=== PATIENT | male | born 1975 | race Caucasian/White ===

== ENCOUNTER 2018-02-22 23:35 | Emergency (ER) | payer MEDICAID ==
[~2018-02-22] VITALS: Ht 177.8 cm; Wt 73.5 kg
[~2018-02-22 23:35] MED LIST: AMOCLA875 PO; ATEN50 PO; Albuterol17 G1 INH; Bactrim Ds Tab1 EACH PO; CEPH500 PO; CHLO25 PO; HYDACE25S PR; HYDACE5 PO; HYDCHL25 PO; Keflex500 MG PO; LISI5 PO; LORA10 PO; Lopressor 25 mg25 MG PO; METO25 PO; Naprosyn500 MG PO; Norco 5-325 Ta1 EACH PO; OXYACE7.5T PO; PRED20 PO; Pepcid40 MG PO; Prednisone20 MG PO; RXOXYACE PO; RXSULTRIDS PO; SULTRIDS PO; TRAZ50; Ultram50 MG PO; Zithromax250 MG PO
[2018-02-23 00:18] LABS: BASOPHILS ABSOLUTE AUTO 0.08 K/mm3 (0.00-0.23); BASOPHILS PERCENT AUTO 1 % (0-2); EOSINOPHILS ABSOLUTE AUTO 0.22 K/mm3 (0.00-0.68); EOSINOPHILS PERCENT AUTO 4 % (0-6); Hematocrit 40.1 % (37.0-53.0); Hemoglobin 13.7 g/dL (13.5-17.5); IMMATURE GRAN ABSOLUTE AUTO 0.01 K/mm3 (0.00-0.10); IMMATURE GRAN PERCENT AUTO 0 % (0-1); LYMPHOCYTES ABSOLUTE AUTO 2.54 K/mm3 (0.84-5.20); LYMPHOCYTES PERCENT AUTO 40 % (21-46); MONOCYTES ABSOLUTE AUTO 0.75 K/mm3 (0.16-1.47); MONOCYTES PERCENT AUTO 12 % (4-13); Mean Corpuscular HGB 30.1 pg (26.0-34.0); Mean Corpuscular HGB Conc 34.2 g/dL (31.5-36.5); Mean Corpuscular Volume 88 fL (80-100); Mean Platelet Volume 9.9 fL (9.1-12.4); NEUTROPHILS ABSOLUTE AUTO 2.77 K/mm3 (1.96-9.15); NEUTROPHILS PERCENT AUTO 43 % (41-73); Platelet Count 262 K/mm3 (150-400); RDW Coefficient Variation 12.6 % (11.7-14.2); RDW Standard Deviation 40.9 fL (35.1-46.3); Red Blood Cell Count 4.55 M/mm3 (4.30-5.90); White Blood Cell Count 6.37 K/mm3 (4.00-11.30)
[2018-02-23 00:36] LABS: Alanine Aminotransfer (ALT/SGP 67 U/L (12-78); Albumin, Blood 3.5 g/dL (3.4-5.0); Albumin/Globulin Ratio 0.9 (0.8-1.8); Alk Phos 82 U/L (50-136); Anion Gap 7 mmol/L (6-16); Aspartate Aminotrans (AST/SGOT 70 U/L (12-37); Bilirubin, Total 0.2 mg/dL (0.1-1.0); Blood Urea Nitrogen 16 mg/dL (8-24); Bun/Creatinine Ratio 14.3 (12.0-20.0); CO2, Blood 27 mmol/L (21-32); Chloride, Blood 108 mmol/L (98-108); Creatinine, Blood 1.12 mg/dL (0.60-1.20); Ethanol (Alcohol), Blood, Med 280 mg/dL; Globulin, Blood 3.8 g/dL (2.2-4.0); Glomerular Filtration Rate >60 (60-); Glucose, Blood 102 mg/dL (70-99); Potassium, Blood 3.7 mmol/L (3.5-5.5); Sodium, Blood 142 mmol/L (136-145); Total Protein, Blood 7.3 g/dL (6.4-8.2)
[2018-02-23] MEDS ORDERED: CHLO25 PO (01:07)
== END 2018-02-23 01:18 | disposition home or self-care (01) ==
LOC: ER 23:35
PROVIDERS: Emergency Medicine
DX: F10.10 Alcohol abuse, uncomplicated (principal); I10 Essential (primary) hypertension; F17.210 Nicotine dependence, cigarettes, uncomplicated; Z88.0 Allergy status to penicillin; Z88.5 Allergy status to narcotic agent; Z79.899 Other long term (current) drug therapy; Y90.8 Blood alcohol level of 240 mg/100 ml or more
CPT/HCPCS: 36415; 80053; 85025; 99284; G0480

== ENCOUNTER 2018-03-02 18:25 | Emergency (ER) | payer OTHER ==
[~2018-03-02] VITALS: Ht 154.9 cm; Wt 77.1 kg
[2018-03-02 19:17] LABS: BASOPHILS ABSOLUTE AUTO 0.05 K/mm3 (0.00-0.23); BASOPHILS PERCENT AUTO 1 % (0-2); EOSINOPHILS ABSOLUTE AUTO 0.15 K/mm3 (0.00-0.68); EOSINOPHILS PERCENT AUTO 2 % (0-6); Hematocrit 37.7 % (37.0-53.0); Hemoglobin 12.9 g/dL (13.5-17.5); IMMATURE GRAN ABSOLUTE AUTO 0.03 K/mm3 (0.00-0.10); IMMATURE GRAN PERCENT AUTO 0 % (0-1); LYMPHOCYTES ABSOLUTE AUTO 1.83 K/mm3 (0.84-5.20); LYMPHOCYTES PERCENT AUTO 21 % (21-46); MONOCYTES ABSOLUTE AUTO 0.76 K/mm3 (0.16-1.47); MONOCYTES PERCENT AUTO 9 % (4-13); Mean Corpuscular HGB 30.6 pg (26.0-34.0); Mean Corpuscular HGB Conc 34.2 g/dL (31.5-36.5); Mean Corpuscular Volume 90 fL (80-100); Mean Platelet Volume 10.6 fL (9.1-12.4); NEUTROPHILS ABSOLUTE AUTO 5.93 K/mm3 (1.96-9.15); NEUTROPHILS PERCENT AUTO 68 % (41-73); Platelet Count 195 K/mm3 (150-400); RDW Coefficient Variation 12.9 % (11.7-14.2); RDW Standard Deviation 42.4 fL (35.1-46.3); Red Blood Cell Count 4.21 M/mm3 (4.30-5.90); White Blood Cell Count 8.75 K/mm3 (4.00-11.30)
[2018-03-02 19:36] LABS: Alanine Aminotransfer (ALT/SGP 53 U/L (12-78); Albumin, Blood 3.1 g/dL (3.4-5.0); Albumin/Globulin Ratio 0.9 (0.8-1.8); Alk Phos 99 U/L (50-136); Anion Gap 9 mmol/L (6-16); Aspartate Aminotrans (AST/SGOT 55 U/L (12-37); Bilirubin, Total 0.1 mg/dL (0.1-1.0); Blood Urea Nitrogen 18 mg/dL (8-24); Bun/Creatinine Ratio 18.6 (12.0-20.0); CO2, Blood 25 mmol/L (21-32); Calcium, Blood 8.6 mg/dL (8.5-10.1); Chloride, Blood 107 mmol/L (98-108); Creatinine, Blood 0.97 mg/dL (0.60-1.20); Ethanol (Alcohol), Blood, Med <3 mg/dL; Globulin, Blood 3.4 g/dL (2.2-4.0); Glomerular Filtration Rate >60 (60-); Glucose, Blood 109 mg/dL (70-99); Potassium, Blood 4.1 mmol/L (3.5-5.5); Sodium, Blood 141 mmol/L (136-145); Total Protein, Blood 6.5 g/dL (6.4-8.2)
[2018-03-02] MEDS ORDERED: CHLO25 PO (19:52)
== END 2018-03-02 20:30 | disposition home or self-care (01) ==
LOC: ER 18:25
PROVIDERS: Emergency Medicine
DX: F10.231 Alcohol dependence with withdrawal delirium (principal); R56.9 Unspecified convulsions; F17.200 Nicotine dependence, unspecified, uncomplicated; Z88.5 Allergy status to narcotic agent; Z88.0 Allergy status to penicillin
CPT/HCPCS: 36415; 80053; 85025; 96374; 99284-25; G0480; J2060

== ENCOUNTER 2018-03-02 23:06 | Emergency (ER) | payer OTHER ==
[~2018-03-02] VITALS: Ht 172.7 cm; Wt 77.1 kg
[2018-03-03 00:35] LABS: Calcium, Ionized (POC) 1.14 mmol/L (1.10-1.46); Chloride (POC) 102 mmol/L (98-108); Creatinine (POC) 0.8 mg/dL (0.8-1.3); Glucose (ISTAT POC) 134 mg/dL (70-99); Hemoglobin (POC) 11.9 g/dL (13.5-17.5); Potassium (POC) 3.6 mmol/L (3.5-5.5); Sodium (POC) 140 mmol/L (135-148); Total CO2 (POC) 28 mmol/L (21-32)
[2018-03-03 00:39] LABS: BASOPHILS ABSOLUTE AUTO 0.04 K/mm3 (0.00-0.23); BASOPHILS PERCENT AUTO 1 % (0-2); EOSINOPHILS ABSOLUTE AUTO 0.07 K/mm3 (0.00-0.68); EOSINOPHILS PERCENT AUTO 1 % (0-6); Hemoglobin 12.3 g/dL (13.5-17.5); IMMATURE GRAN ABSOLUTE AUTO 0.07 K/mm3 (0.00-0.10); IMMATURE GRAN PERCENT AUTO 1 % (0-1); LYMPHOCYTES ABSOLUTE AUTO 0.98 K/mm3 (0.84-5.20); LYMPHOCYTES PERCENT AUTO 11 % (21-46); MONOCYTES ABSOLUTE AUTO 0.56 K/mm3 (0.16-1.47); MONOCYTES PERCENT AUTO 6 % (4-13); Mean Corpuscular HGB 29.9 pg (26.0-34.0); Mean Corpuscular HGB Conc 33.2 g/dL (31.5-36.5); Mean Corpuscular Volume 90 fL (80-100); Mean Platelet Volume 10.6 fL (9.1-12.4); NEUTROPHILS PERCENT AUTO 81 % (41-73); Platelet Count 184 K/mm3 (150-400); RDW Coefficient Variation 12.8 % (11.7-14.2); RDW Standard Deviation 41.9 fL (35.1-46.3); Red Blood Cell Count 4.12 M/mm3 (4.30-5.90); White Blood Cell Count 8.82 K/mm3 (4.00-11.30)
[2018-03-03 00:57] LABS: Alanine Aminotransfer (ALT/SGP 52 U/L (12-78); Albumin/Globulin Ratio 0.9 (0.8-1.8); Alk Phos 75 U/L (50-136); Anion Gap 4 mmol/L (6-16); Aspartate Aminotrans (AST/SGOT 52 U/L (12-37); Bilirubin, Total 0.2 mg/dL (0.1-1.0); Blood Urea Nitrogen 19 mg/dL (8-24); Bun/Creatinine Ratio 24.3 (12.0-20.0); CO2, Blood 30 mmol/L (21-32); Calcium, Blood 8.1 mg/dL (8.5-10.1); Chloride, Blood 107 mmol/L (98-108); Creatinine, Blood 0.78 mg/dL (0.60-1.20); Globulin, Blood 3.5 g/dL (2.2-4.0); Glomerular Filtration Rate >60 (60-); Glucose, Blood 133 mg/dL (70-99); Potassium, Blood 3.7 mmol/L (3.5-5.5); Sodium, Blood 141 mmol/L (136-145); Total Protein, Blood 6.5 g/dL (6.4-8.2)
== END 2018-03-03 03:43 | disposition home or self-care (01) ==
LOC: ER 23:06
PROVIDERS: Emergency Medicine
DX: F10.239 Alcohol dependence with withdrawal, unspecified (principal); Z88.0 Allergy status to penicillin; Z88.5 Allergy status to narcotic agent; Z79.899 Other long term (current) drug therapy; I10 Essential (primary) hypertension; F17.210 Nicotine dependence, cigarettes, uncomplicated
CPT/HCPCS: 80047; 80053; 85014; 85025; 99284; J3411; J3475; J7042

== ENCOUNTER 2019-02-02 17:48 | Inpatient (IN) | payer OTHER ==
[~2019-02-02] VITALS: Ht 175.3 cm; Wt 76.8 kg
[2019-02-02 18:15] LABS: BASOPHILS ABSOLUTE AUTO 0.07 K/mm3 (0.00-0.23); BASOPHILS PERCENT AUTO 1 % (0-2); EOSINOPHILS ABSOLUTE AUTO 0.04 K/mm3 (0.00-0.68); EOSINOPHILS PERCENT AUTO 1 % (0-6); Hematocrit 42.3 % (37.0-53.0); Hemoglobin 14.1 g/dL (13.5-17.5); IMMATURE GRAN ABSOLUTE AUTO 0.02 K/mm3 (0.00-0.10); IMMATURE GRAN PERCENT AUTO 0 % (0-1); LYMPHOCYTES ABSOLUTE AUTO 1.64 K/mm3 (0.84-5.20); LYMPHOCYTES PERCENT AUTO 19 % (21-46); MONOCYTES ABSOLUTE AUTO 0.36 K/mm3 (0.16-1.47); MONOCYTES PERCENT AUTO 4 % (4-13); Mean Corpuscular HGB Conc 33.3 g/dL (31.5-36.5); Mean Corpuscular Volume 90 fL (80-100); Mean Platelet Volume 10.6 fL (9.1-12.4); NEUTROPHILS ABSOLUTE AUTO 6.57 K/mm3 (1.96-9.15); NEUTROPHILS PERCENT AUTO 76 % (41-73); Platelet Count 198 K/mm3 (150-400); RDW Coefficient Variation 12.4 % (11.7-14.2); RDW Standard Deviation 41.1 fL (35.1-46.3)
[2019-02-02 18:54] LABS: Alanine Aminotransfer (ALT/SGP 123 U/L (12-78); Albumin, Blood 4.1 g/dL (3.4-5.0); Albumin/Globulin Ratio 1.1 (0.8-1.8); Alk Phos 73 U/L (50-136); Anion Gap 8 mmol/L (6-16); Aspartate Aminotrans (AST/SGOT 99 U/L (12-37); Bilirubin, Total 0.7 mg/dL (0.1-1.0); Blood Urea Nitrogen 14 mg/dL (8-24); Bun/Creatinine Ratio 13.3 (12.0-20.0); CO2, Blood 26 mmol/L (21-32); Calcium, Blood 8.3 mg/dL (8.5-10.1); Chloride, Blood 106 mmol/L (98-108); Creatinine, Blood 1.05 mg/dL (0.60-1.20); Globulin, Blood 3.7 g/dL (2.2-4.0); Glomerular Filtration Rate >60 (60-); Glucose, Blood 146 mg/dL (70-99); Potassium, Blood 3.7 mmol/L (3.5-5.5); Sodium, Blood 140 mmol/L (136-145); Total Protein, Blood 7.8 g/dL (6.4-8.2)
--- NOTE | 2019-02-03 01:11 | NUR ---
ASSUMED PT CARE AT 2330 PT ARRIVED ON UNIT VIA STRETCHER. VERY DROWSY, BUT RESPONSIVE TO VERBAL STIMULI. PT ALERT AND ORIENTED TO PERSON AND SURROUNDINGS. ABLE TO FOLLOW DIRECTIONS. PT VERY DIAPHORETIC WITH A TEMPERATURE 99.0. VERY TREMULOUS WITH ARMS EXTENDED. CIWA SCORE OF 11. ORDERS FOR LIBRIUM 50MG; CALLED TO ASK FOR 25-50MG IN ORDER TO START OUT AT SMALLER DOSE. PT ALSO ARRIVED WITH NO ORDERS FOR MAINTENANCE FLUIDS; CALLED TO CLARIFY WITH NEW ORDERS FOR A BANANA BAG, WELL NS TO INFUSE AT 100MLS/HR. ADMINISTERED 25MG OF LIBRIUM PER CIWA SCORE. PT ARRIVED WITH TWO FIELD START IV'S. IV TO LEFT HAND WAS NOT PATENT; HOWEVER, ATTEMPTED FOUR TIMES TO OBTAIN ANOTHER IV. VERY DIFFICULT; WOULD RECEIVE A FLASH, BUT NOT ABLE TO THREAD CATHETER. PLACED 2L OF OXYGEN ON PT D/T OXYGEN SATURATIONS DOWN TO 88% WHEN HE WOULD FALL ASLEEP. NO SEIZURE ACTIVITY AT THIS TIME; SEIZURE PADS IN PLACE. WILL CONTINUE TO MONITOR.
[2019-02-03 03:48] LABS: Hematocrit 42.8 % (37.0-53.0); Hemoglobin 14.2 g/dL (13.5-17.5); Mean Corpuscular HGB 29.6 pg (26.0-34.0); Mean Corpuscular HGB Conc 33.2 g/dL (31.5-36.5); Mean Corpuscular Volume 89 fL (80-100); Mean Platelet Volume 10.4 fL (9.1-12.4); Platelet Count 211 K/mm3 (150-400); RDW Coefficient Variation 12.5 % (11.7-14.2); RDW Standard Deviation 41.5 fL (35.1-46.3); Red Blood Cell Count 4.79 M/mm3 (4.30-5.90); White Blood Cell Count 7.62 K/mm3 (4.00-11.30)
[2019-02-03 04:07] LABS: Alanine Aminotransfer (ALT/SGP 115 U/L (12-78); Albumin, Blood 3.6 g/dL (3.4-5.0); Alk Phos 73 U/L (50-136); Anion Gap 6 mmol/L (6-16); Aspartate Aminotrans (AST/SGOT 99 U/L (12-37); Bilirubin, Total 0.7 mg/dL (0.1-1.0); Blood Urea Nitrogen 10 mg/dL (8-24); Bun/Creatinine Ratio 12.4 (12.0-20.0); CO2, Blood 27 mmol/L (21-32); Calcium, Blood 7.9 mg/dL (8.5-10.1); Chloride, Blood 106 mmol/L (98-108); Creatinine, Blood 0.81 mg/dL (0.60-1.20); Globulin, Blood 3.7 g/dL (2.2-4.0); Glomerular Filtration Rate >60 (60-); Glucose, Blood 109 mg/dL (70-99); Potassium, Blood 3.5 mmol/L (3.5-5.5); Sodium, Blood 139 mmol/L (136-145); Total Protein, Blood 7.3 g/dL (6.4-8.2)
--- NOTE | 2019-02-03 05:52 | NUR ---
END OF SHIFT SUMMARY PT REMAINS CONFUSED TO PLACE AND TIME, BUT ABLE TO FOLLOW COMMANDS. CONTINUES TO BE TREMULOUS AT BASELINE, AND DIAPHORETIC. HOWEVER, PT DENIES ANY VISUAL/AUDITORY HALLUCINATIONS. HIGHEST CIWA SCORE OF 11 THIS SHIFT AND WAS TREATED WITH LIBRIUM 25MG PER ORDERS. PT HAS BEEN SLEEPING COMFORTABLY MOST OF SHIFT AND ABLE TO REPOSITION HIMSELF. CALL LIGHT WITHIN REACH AND PT IS ABLE TO MAKE HIS NEEDS KNOWN.
--- NOTE | 2019-02-03 07:14 | NUR ---
ASSUMED CARE: PT RESTING QUIETLY IN BED AT THIS TIME. REPOSITIONS SELF IN BED, 2L NC FOR SATS GREATER THAN 90%. NSR WITH INVERTED T WAVE NOTED. NO ACUTE NEEDS NOTED AT THIS TIME.
--- NOTE | 2019-02-03 17:37 | NUR ---
SHIFT SUMMARY: PT HAS BEEN RESTING MOST OF SHIFT. CIWA HIGH 17. MEDICATING ABLE WITH ATIVAN AND LIBRIUM PER ORDERS. RESTING QUIETLY AT THIS TIME. ATE LUNCH, WAITING TO WAKE UP FOR DINNER. NO SEIZURE ACTIVITY NOTED. NO FURTHER NEEDS OR CONCERNS AT THIS TIME.
--- NOTE | 2019-02-03 20:13 | NUR ---
INITIAL ASSESSMENT PATIENT SLEEPING SOUNDLY UPON ENTERING ROOM. PATIENT WOKE TO VERBAL STIMULI. PATIENT ALERT AND ORIENTED TO SELF, TOWN AND FOLLOWING DIRECTIONS. AFEBRILE. CIWA OF 15 CURRENTLY. PATIENT COMPLAINTS OF MILD HEADACHE BUT THAT IT IS MANAGEABLE. PATIENT WEAK BUT ABLE TO REPOSITION SELF IN BED AND ASSIST WITH ADLS. PATIENT SATTING 90% AND GREATER ON RA. LUNGS CLEAR T/O. PATIENT IN NS WITH INVERTED T WAVE. HR IN THE 80S, SBP IN THE 150S. PULSES STRONG. PATIENT COMPLAINS OF SLIGHT NAUSEA. ABDOMEN SOFT, NONTENDER, MILDLY DISTENDED, WITH NORMOACTIVE BS. DATE OF LAST BM UNKNOWN. WNL- PATIENT USING BEDSIDE URINAL. SKIN APPEARS WNL. NS INFUSING AT 100 MLS/ HOUR. BED LOW, CALL LIGHT IN REACH. WILL CONTINUE TO MONITOR.
--- NOTE | 2019-02-03 20:28 | NUR ---
REPORT GIVEN TO NURSE FOR PCU 13 THAT WILL BE ASSUMING CARE OF PATIENT.
--- NOTE | 2019-02-03 20:45 | NUR ---
PATIENT TRANSFERRED TO PCU 13 BY SOFTWARE PRODUCT SPECIALIST.
--- NOTE | 2019-02-03 22:22 | NUR ---
PATIENT ONLY RESPONDING TO QUESTIONS IN ONE WORD RESPONSES AND POINTING OR NODDING AT THINGS HE WANTS. PATIENT LOOKS LIKE HE IS TRYING TO TALK BUT IS UNABLE TO. NOTIFIED DR. MAGDALENO OF PATIENT COMMUNICATION DEFICITS. DOCTOR STATES TO TRY TO HOLD ATIVAN IF WE CAN THROUGH THE NIGHT TO SEE IF PATIENT CLEARS. GIVE IF NEEDED FOR CIWA.
--- NOTE | 2019-02-03 22:44 | NUR ---
PATIENT ABLE TO USE URINAL WITHOUT ASSISTANCE. PATIENT DROPPED SOMETHING ALERTING ME HE MAY NEED SOMETHING. PATIENT ONLY ABLE TO SAY "MESS". PATIENT HAD SLIGHT INCOTINENCE OF BOWELS. ABLE TO USE BEDPAN AND HAD A MEDIUM LOOSE BROWN ODORESS STOOL. PATIENT STATED "SHAKES", "MAD", "SLEEP", "MIC". PATIENT NODDED HEAD WHEN ASKED IF HE WAS MAD. NOT ABLE TO EXPRESS WHY. EXPLAINED TO PATIENT THAT WE ARE TRYING TO LIMIT SOME OF HIS MEDICATIONS DUE TO HIS TROUBLE COMMUNICATING. PATIENT NODDED HEAD. PATIENT BED ALARM ON AND SIEZURE PRECAUTIONS IN PLACE.
--- NOTE | 2019-02-04 06:32 | NUR ---
PATIENT CONTINUES TO HAVE TROUBLE WITH TALKING. PATIENT HAS BEEN SLEEPING THROUGH THE NIGHT. PATIENT USING URINAL APPROPRIATELY AND REPOSITIONING SELF IN THE BED.
--- NOTE | 2019-02-04 17:54 | NUR ---
END OF SHIFT; PT HAS BEEN VERY BUSY TODAY. UP AND DOWN IN ROOM. HAS PULLED ONE IV OUT. ANOTHER ONE IS STARTED BY JENARO BASS. PT UP TO BATHROOM MULITPLE TIMES TODAY. HAS SMALL SOFT FORMED STOOLS EACH TIME. PT HAS ANXIETY AND WOULD LIKE TO GO HOME. TRIES TO BARGAIN WITH THIS RN TO HAVE HER TALK MD INTO LETTING HIM GO HOME. THIS RN REINFORCES WHAT SAID EARLIER IN HER CONVERSATION WITH PATIENT WHEN I WAS IN ROOM THAT HE WAS AT HIGH RISK FOR SEIZURES AND THAT HIS BLOOD PRESSURE WAS EXTREME HIGH AND NEEDED TO BE ADDRESSED. PATIENT VERBALIZED UNDERSTANDING. METOPROLOL 5MG IV GIVEN THIS LIVAN FOR ELEVATED BP OF 176/129. AFTER 30 MINUTES DOWN TO 163/108. PT ASKING REPEATEDLY FOR ATIVAN THROUGHOUT DAY. MUCH EDUCATION IS PROVIDED ON DETOX AND PHYSICAL SYMPTOMS. PT VERBALIZED UNDERSTANDING. AT ONE TIME PT STATES THAT HE IS GOING TO [facility] ON WEDNESDAY AND HAS BEEN ACCEPTED. . HOWEVER HE LATER RETRACTS THAT STATEMENT AND SAID HE THINKS THEY MAY HAVE A BED FOR HIM ON WEDNESDAY IF HE CHECKS. PT IS NOTED TO BE CALLING ON PHONE THIS LIVAN ASKING FOR FRIENDS TO COME GIVE HIM A RIDE HOME. PER PATIENT HIS FRIENDS HAVE REFUSED TO COME GET HIM. WILL CONTINUE TO MONITOR THIS PATEINT UNTIL REPORT AND HAND OFF TO NOC SHIFT RN.
--- NOTE | 2019-02-05 03:42 | NUR ---
PATIENT ASKING FOR SPRITE AND SNACKS WHENEVER HE WAKES UP. PATIENT ASKING FOR ANXIETY MEDICATION WHENEVER HE IS AWAKE ALSO. PATIENT WAKING TO THE BATHROOM SUPERVISED WITHOUT ASSISTANCE. PATIENT ABLE TO HOLD CONVERSATION THROUGH THE NIGHT. PATIENT STATES HE IS GOING HOME TODAY.
--- NOTE | 2019-02-05 08:38 | NUR ---
PT INSISTS ON LEAVING AMA. COMES TO ROOM TO SPEAK WITH PATIENT. EXPLAINED RISKS OF LEAVING TO PATIENT HE VERBALIZED UNDERSTANDING. PT REQUESTING RX. REFUSES STATES NO RX IF HE LEAVES AMA. IV IS DC'D INTACT. PT CALLS AGAIN FOR RIDE. HIS RIDE WILL BE HERE IN 10 MINUTES PER PATEINT. PT AMBULATES TO [facility] WITHOUT ASSIST. OUTSIDE SALES CONSULTANT NOTIFIED CHARGE LARISSA NOTIFIED. PT SIGNED AMA FORM PRIOR TO LEAVING.
== END 2019-02-05 08:44 | disposition left against medical advice (07) | DRG 894 ==
LOC: ER 17:48 → ICUW 17:49 → ER 20:29 → ICUW 20:29 → PCU 02-03 21:00
PROVIDERS: Emergency Medicine; ADMIT Internal Medicine
DX: F10.239 Alcohol dependence with withdrawal, unspecified (principal); R47.01 Aphasia; F17.210 Nicotine dependence, cigarettes, uncomplicated; I10 Essential (primary) hypertension; Y90.8 Blood alcohol level of 240 mg/100 ml or more; J42 Unspecified chronic bronchitis
CPT/HCPCS: 36415; 70450; 70496; 70498; 71045; 80053; 85025; 85027; 87081; 96360; 96361; 96372; 96374; 96375; 96376; 99285-25; G0378; G0480; J1650; J2060; J3411; J3475; J7030; J7042; Q9967

== ENCOUNTER 2019-06-19 18:07 | Inpatient (IN) | payer OTHER ==
[~2019-06-19] VITALS: Ht 180.3 cm; Wt 77.3 kg
[2019-06-19 19:05] LABS: BASOPHILS ABSOLUTE AUTO 0.06 K/mm3 (0.00-0.23); BASOPHILS PERCENT AUTO 1 % (0-2); EOSINOPHILS ABSOLUTE AUTO 0.26 K/mm3 (0.00-0.68); EOSINOPHILS PERCENT AUTO 3 % (0-6); Hematocrit 42.9 % (37.0-53.0); Hemoglobin 14.2 g/dL (13.5-17.5); IMMATURE GRAN ABSOLUTE AUTO 0.04 K/mm3 (0.00-0.10); IMMATURE GRAN PERCENT AUTO 1 % (0-1); LYMPHOCYTES ABSOLUTE AUTO 1.96 K/mm3 (0.84-5.20); LYMPHOCYTES PERCENT AUTO 22 % (21-46); MONOCYTES ABSOLUTE AUTO 0.62 K/mm3 (0.16-1.47); MONOCYTES PERCENT AUTO 7 % (4-13); Mean Corpuscular HGB 29.7 pg (26.0-34.0); Mean Corpuscular HGB Conc 33.1 g/dL (31.5-36.5); Mean Corpuscular Volume 90 fL (80-100); Mean Platelet Volume 11.3 fL (9.1-12.4); NEUTROPHILS ABSOLUTE AUTO 5.87 K/mm3 (1.96-9.15); NEUTROPHILS PERCENT AUTO 67 % (41-73); Platelet Count 196 K/mm3 (150-400); RDW Coefficient Variation 13.1 % (11.7-14.2); RDW Standard Deviation 42.5 fL (35.1-46.3); Red Blood Cell Count 4.78 M/mm3 (4.30-5.90); White Blood Cell Count 8.81 K/mm3 (4.00-11.30)
[2019-06-19 19:15] LABS: Source, Urine Clean Catch
[2019-06-19 19:19] LABS: Bilirubin, Urine Neg (Neg); Blood, Urine Neg (Neg); Glucose Qualitative, Urine Neg (Neg); Ketones, Urine Neg (Neg); Leukocyte Esterase, Urine Neg (Neg); Nitrite, Urine Neg (Neg); Protein, Urine Neg (Neg); Specific Gravity, Urine 1.005 (1.003-1.022); Urobilinogen, Urine NORM (Normal)
[2019-06-19 19:26] LABS: Appearance, Urine Clear (Clear); Color, Urine Pale Yellow (P-Yellow)
[2019-06-19 19:33] LABS: Troponin I <0.015 ng/mL (0.000-0.040)
[2019-06-19 19:36] LABS: Alanine Aminotransfer (ALT/SGP 170 U/L (12-78); Albumin, Blood 3.4 g/dL (3.4-5.0); Albumin/Globulin Ratio 0.9 (0.8-1.8); Alk Phos 79 U/L (50-136); Anion Gap 6 mmol/L (6-16); Aspartate Aminotrans (AST/SGOT 128 U/L (12-37); Bilirubin, Total 0.4 mg/dL (0.1-1.0); Blood Urea Nitrogen 18 mg/dL (8-24); Bun/Creatinine Ratio 21.2 (12.0-20.0); CO2, Blood 27 mmol/L (21-32); Calcium, Blood 9.7 mg/dL (8.5-10.1); Chloride, Blood 108 mmol/L (98-108); Creatinine, Blood 0.85 mg/dL (0.60-1.20); Globulin, Blood 3.8 g/dL (2.2-4.0); Glomerular Filtration Rate >60 (60-); Glucose, Blood 117 mg/dL (70-99); Potassium, Blood 4.4 mmol/L (3.5-5.5); Sodium, Blood 141 mmol/L (136-145); Total Protein, Blood 7.2 g/dL (6.4-8.2)
[2019-06-19 19:36] LABS: U Amphetamine Screen Not Detected; U Barbituate Screen Not Detected; U Benzodiazapine Screen DETECTED; U Buprenorphine Screen Not Detected; U Cannabinoids Screen DETECTED; U Cocaine Screen Not Detected; U Methadone Screen Not Detected; U Methamphetamine Screen Not Detected; U Opiates Screen Not Detected; U Oxycodone Screen Not Detected; U Phencyclidine Screen Not Detected; U Propoxyphene Screen Not Detected
--- NOTE | 2019-06-19 22:30 | NUR ---
PATIENT ARRIVED TO ICU 11 VIA GURNEY FROM ED. PATIENT ABLE TO MOVE SELF TO BED, PLACED ON ICU MONITOR. PATIENT SLIGHTLY FORGETFUL, THINKING HE WAS AT [facility], AND UNSURE OF DATE. SLIGHT TREMOR SEEN. PATIENT ABLE TO ANSWER ADMIT QUESTIONS AND VERBALIZED UNDERSTANDING RISK FOR FALL AND NEEDING ASSISTANCE WITH GETTING UP. ORDER OBTAINED FROM DOCTOR STOKES TO ADVANCE DIET TO GARY. PATIENT GARY LIQUIDS WITHOUT DIFFICULTY.
[2019-06-19] MEDS ORDERED: CHLO25 PO (22:58)
[2019-06-20 03:00] LABS: Hematocrit 42.6 % (37.0-53.0); Hemoglobin 14.2 g/dL (13.5-17.5); Mean Corpuscular HGB Conc 33.3 g/dL (31.5-36.5); Mean Corpuscular Volume 90 fL (80-100); Platelet Count 195 K/mm3 (150-400); RDW Coefficient Variation 12.9 % (11.7-14.2); RDW Standard Deviation 42.5 fL (35.1-46.3); Red Blood Cell Count 4.73 M/mm3 (4.30-5.90); White Blood Cell Count 10.68 K/mm3 (4.00-11.30)
[2019-06-20 03:20] LABS: Alanine Aminotransfer (ALT/SGP 162 U/L (12-78); Albumin, Blood 3.4 g/dL (3.4-5.0); Albumin/Globulin Ratio 0.9 (0.8-1.8); Alk Phos 69 U/L (50-136); Anion Gap 5 mmol/L (6-16); Aspartate Aminotrans (AST/SGOT 103 U/L (12-37); Bilirubin, Total 0.4 mg/dL (0.1-1.0); Blood Urea Nitrogen 17 mg/dL (8-24); Bun/Creatinine Ratio 24.5 (12.0-20.0); CO2, Blood 27 mmol/L (21-32); CPK Creatine Kinase 74 U/L (39-308); Calcium, Blood 8.9 mg/dL (8.5-10.1); Chloride, Blood 107 mmol/L (98-108); Globulin, Blood 3.9 g/dL (2.2-4.0); Glomerular Filtration Rate >60 (60-); Glucose, Blood 197 mg/dL (70-99); Potassium, Blood 4.2 mmol/L (3.5-5.5); Sodium, Blood 139 mmol/L (136-145); Total Protein, Blood 7.3 g/dL (6.4-8.2); Troponin I 0.019 ng/mL (0.000-0.040)
--- NOTE | 2019-06-20 06:17 | NUR ---
SUMMARY PATIENT RESTING QUIETLY IN BED, AWAKENS TO SLIGHT STIMULI. PATIENT VERBALIZED FEELING HUNGRY THIS MORNING, SNACK OF PUDDING AND GRAM CRACKERS GIVEN, PATIENT HAVING NO DIFFICULTY WITH SNACK. PATIENT VERBALIZED THAT HE IS FEELING BETTER. SLIGHT CONFUSION CONTINUES, NEEDING REMINDING THAT HE IS IN THE HOSPITAL. PATIENT FREQUENTLY ASKING IF HE GETS TO GO HOME TODAY. NO SEIZURE ACTIVITY SEEN T/O NIGHT.
--- NOTE | 2019-06-20 07:30 | NUR ---
AM ASSESS SUMMARY PT RESTING, SLIGHTLY AGITATED, RESTLESS, STATES WANTS TO BE DISCHARGE BY 0900. PT REMAINS IN BED AT THIS TIME, REPOSITIONING SELF FOR COMFORT. PT ATTEMPTING TO CALL FAMILY BUT NO ANSWER PER PT REPORT. ASSISTANCE PROVIDED NEEDED R/T PT ANXIETY. PT C/O HEADACHE 10/19, MILD TREMORS NOTED, A&OX3, NOT TO DATE BUT AWARE OF YEAR AND MONTH. PT ON MONITOR WITH HEART RATE 90-100s, NSR. LUNGS CLEAR, DIMINISHED IN BASES, RM AIR, SAT 97%. BS PRESENT AND PT HUNGRY, ABD SOFT AND ROUND, NONTENDER. PT USES URINAL WHILE IN BED. SKIN WNL EXCEPT SCRAPES TO BLE. TEMP 98.7 TEMPORAL. BANANA BAG INFUSING VIA IV IN RT AC, SL TO LT HAND FLUSHES /S DIFFICULTY. DISCUSSED MEDICATIONS WITH PT AND LIBRIUM 50MG PO AND ATIVAN 2MG IV GIVEN. WARM BLANKET GIVEN ALSO FOR COMFORT.
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
--- NOTE | 2019-06-20 10:48 | NUR ---
IT PROGRAM AUDITOR CAME TO DRAW REPEAT TROPONIN LAB. PATIENT BUSY WITH THE PHONE AND DID NOT ALLOW THE DRAW
--- NOTE | 2019-06-20 10:56 | NUR ---
Echocardiogram completed at 0845.
== END 2019-06-20 10:35 | disposition left against medical advice (07) | DRG 894 ==
LOC: ER 18:07 → ICUW 20:43
PROVIDERS: Emergency Medicine; Physician Assistant; ADMIT Internal Medicine
DX: F10.231 Alcohol dependence with withdrawal delirium (principal); I50.31 Acute diastolic (congestive) heart failure; F17.210 Nicotine dependence, cigarettes, uncomplicated; J42 Unspecified chronic bronchitis; R73.9 Hyperglycemia, unspecified; F41.9 Anxiety disorder, unspecified; I11.0 Hypertensive heart disease with heart failure; R09.02 Hypoxemia
CPT/HCPCS: 36415; 71045; 80053; 81003; 82550; 83880; 84484; 85025; 85027; 93005; 93010; 93306; 94640; 96365; 96375; 99285-25; J1650; J2060; J2930; J3411; J3475; J7042

== ENCOUNTER 2019-07-31 11:01 | Emergency (ER) | payer OTHER ==
[~2019-07-31] VITALS: Ht 177.8 cm; Wt 99.8 kg
== END 2019-07-31 14:59 | disposition home or self-care (01) ==
LOC: ER 11:01
DX: F10.129 Alcohol abuse with intoxication, unspecified (principal); Z88.0 Allergy status to penicillin; Z88.5 Allergy status to narcotic agent; I10 Essential (primary) hypertension; Z72.0 Tobacco use
CPT/HCPCS: 99284

== ENCOUNTER 2019-12-18 09:54 | Emergency (ER) | payer OTHER ==
[~2019-12-18] VITALS: Ht 180.3 cm; Wt 79.4 kg
[2019-12-18 11:12] LABS: BASOPHILS ABSOLUTE AUTO 0.07 K/mm3 (0.00-0.23); BASOPHILS PERCENT AUTO 1 % (0-2); EOSINOPHILS ABSOLUTE AUTO 0.11 K/mm3 (0.00-0.68); EOSINOPHILS PERCENT AUTO 2 % (0-6); Hematocrit 37.8 % (37.0-53.0); Hemoglobin 12.3 g/dL (13.5-17.5); IMMATURE GRAN ABSOLUTE AUTO 0.02 K/mm3 (0.00-0.10); IMMATURE GRAN PERCENT AUTO 0 % (0-1); LYMPHOCYTES ABSOLUTE AUTO 1.36 K/mm3 (0.84-5.20); LYMPHOCYTES PERCENT AUTO 23 % (21-46); MONOCYTES ABSOLUTE AUTO 0.53 K/mm3 (0.16-1.47); MONOCYTES PERCENT AUTO 9 % (4-13); Mean Corpuscular HGB 29.1 pg (26.0-34.0); Mean Corpuscular HGB Conc 32.5 g/dL (31.5-36.5); Mean Corpuscular Volume 90 fL (80-100); Mean Platelet Volume 11.3 fL (9.1-12.4); NEUTROPHILS ABSOLUTE AUTO 3.86 K/mm3 (1.96-9.15); NEUTROPHILS PERCENT AUTO 65 % (41-73); Platelet Count 172 K/mm3 (150-400); RDW Standard Deviation 42.3 fL (35.1-46.3); Red Blood Cell Count 4.22 M/mm3 (4.30-5.90); White Blood Cell Count 5.95 K/mm3 (4.00-11.30)
[2019-12-18 11:34] LABS: Acetaminophen, Random <2.0 ug/mL (10.0-30.0); Ethanol (Alcohol), Blood, Med <3 mg/dL; Salicylate 2.8 mg/dL (2.8-20.0)
[2019-12-18 11:35] LABS: Alanine Aminotransfer (ALT/SGP 107 U/L (12-78); Albumin, Blood 3.4 g/dL (3.4-5.0); Alk Phos 53 U/L (50-136); Anion Gap 4 mmol/L (6-16); Aspartate Aminotrans (AST/SGOT 87 U/L (12-37); Bilirubin, Total 0.5 mg/dL (0.1-1.0); Blood Urea Nitrogen 21 mg/dL (8-24); Bun/Creatinine Ratio 24.6 (12.0-20.0); CO2, Blood 29 mmol/L (21-32); Calcium, Blood 9.1 mg/dL (8.5-10.1); Chloride, Blood 109 mmol/L (98-108); Creatinine, Blood 0.85 mg/dL (0.60-1.20); Globulin, Blood 3.4 g/dL (2.2-4.0); Glomerular Filtration Rate >60 (60-); Glucose, Blood 117 mg/dL (70-99); Potassium, Blood 4.2 mmol/L (3.5-5.5); Sodium, Blood 142 mmol/L (136-145); Total Protein, Blood 6.8 g/dL (6.4-8.2)
== END 2019-12-18 12:44 | disposition home or self-care (01) ==
LOC: ER 09:54
PROVIDERS: Physician Assistant
DX: F19.10 Other psychoactive substance abuse, uncomplicated (principal); I10 Essential (primary) hypertension; F17.210 Nicotine dependence, cigarettes, uncomplicated; Z88.0 Allergy status to penicillin; Z88.5 Allergy status to narcotic agent
CPT/HCPCS: 36415; 80053; 82140; 85025; 93005; 93010; 96365; 99285-25; G0480; J3411; J3475; J7042

== ENCOUNTER 2019-12-31 18:09 | Emergency (ER) | payer OTHER ==
[~2019-12-31] VITALS: Ht 180.3 cm; Wt 78.9 kg
[2019-12-31] MEDS ORDERED: Lopressor 25 mg25 MG PO (19:14)
[2019-12-31] MEDS ORDERED: CEPH500 PO (19:14)
== END 2019-12-31 19:33 | disposition home or self-care (01) ==
LOC: ER 18:09
DX: L03.116 Cellulitis of left lower limb (principal); I10 Essential (primary) hypertension; Z88.0 Allergy status to penicillin; Z88.5 Allergy status to narcotic agent; F17.210 Nicotine dependence, cigarettes, uncomplicated
CPT/HCPCS: 99283; A9270-GY

== ENCOUNTER 2020-02-20 09:48 | Emergency (ER) | payer OTHER ==
[~2020-02-20] VITALS: Ht 180.3 cm; Wt 78.0 kg
[2020-02-20 11:32] LABS: Source, Urine Clean Catch
[2020-02-20 11:36] LABS: Appearance, Urine Clear (Clear); Bilirubin, Urine Neg (Neg); Blood, Urine Neg (Neg); Color, Urine Yellow (P-Yellow); Glucose Qualitative, Urine Neg (Neg); Ketones, Urine Neg (Neg); Leukocyte Esterase, Urine Neg (Neg); Nitrite, Urine Neg (Neg); Protein, Urine 2+ (Neg); Urobilinogen, Urine NORM (Normal); pH, Urine 6.5 (5.0-8.0)
[2020-02-20 11:45] LABS: Red Blood Cells, Urine 0-2 /hpf (0-2); White Blood Cells, Urine 0-2 /hpf (0-5)
[2020-02-20 11:47] LABS: Squamous Epithelial Cells Rare /hpf (Few)
[2020-02-20 11:48] LABS: Bacteria Rare /hpf
[2020-02-20 11:54] LABS: Anion Gap 8 mmol/L (6-16); CO2, Blood 25 mmol/L (21-32); Calcium, Blood 8.1 mg/dL (8.5-10.1); Chloride, Blood 110 mmol/L (98-108); Creatinine, Blood 0.88 mg/dL (0.60-1.20); Glomerular Filtration Rate >60 (60-); Glucose, Blood 104 mg/dL (70-99); Potassium, Blood 3.8 mmol/L (3.5-5.5); Sodium, Blood 143 mmol/L (136-145)
[2020-02-20 12:05] LABS: Blood Urea Nitrogen 16 mg/dL (8-24); Bun/Creatinine Ratio 18.3 (12.0-20.0)
[2020-02-20] MEDS ORDERED: Lopressor 25 mg25 MG PO (12:17)
[2020-02-20] MEDS ORDERED: CHLO25 PO (12:17)
[2020-02-20] MEDS ORDERED: CEFP200 PO (12:17)
== END 2020-02-20 12:28 | disposition home or self-care (01) ==
LOC: ER 09:48
PROVIDERS: Emergency Medicine
DX: I10 Essential (primary) hypertension (principal); N39.0 Urinary tract infection, site not specified; H93.13 Tinnitus, bilateral; R20.0 Anesthesia of skin; F17.210 Nicotine dependence, cigarettes, uncomplicated; Z76.0 Encounter for issue of repeat prescription; Z88.0 Allergy status to penicillin; Z88.5 Allergy status to narcotic agent; Z79.899 Other long term (current) drug therapy
CPT/HCPCS: 71045; 80048; 81001; 83735; 93005; 93010; 96361; 96374; 99284-25; J0610; J7120

== ENCOUNTER 2020-02-24 00:58 | Emergency (ER) | payer OTHER ==
[~2020-02-24] VITALS: Ht 180.3 cm; Wt 81.7 kg
[~2020-02-24 00:58] MED LIST changes: +CEFP200 PO
[2020-02-24 01:37] LABS: BASOPHILS ABSOLUTE AUTO 0.12 K/mm3 (0.00-0.23); BASOPHILS PERCENT AUTO 2 % (0-2); EOSINOPHILS ABSOLUTE AUTO 0.15 K/mm3 (0.00-0.68); EOSINOPHILS PERCENT AUTO 2 % (0-6); Hematocrit 43.1 % (37.0-53.0); Hemoglobin 14.3 g/dL (13.5-17.5); IMMATURE GRAN ABSOLUTE AUTO 0.01 K/mm3 (0.00-0.10); IMMATURE GRAN PERCENT AUTO 0 % (0-1); LYMPHOCYTES ABSOLUTE AUTO 3.21 K/mm3 (0.84-5.20); LYMPHOCYTES PERCENT AUTO 44 % (21-46); MONOCYTES ABSOLUTE AUTO 0.81 K/mm3 (0.16-1.47); MONOCYTES PERCENT AUTO 11 % (4-13); Mean Corpuscular HGB 29.8 pg (26.0-34.0); Mean Corpuscular HGB Conc 33.2 g/dL (31.5-36.5); Mean Corpuscular Volume 90 fL (80-100); Mean Platelet Volume 10.4 fL (9.1-12.4); NEUTROPHILS ABSOLUTE AUTO 2.99 K/mm3 (1.96-9.15); NEUTROPHILS PERCENT AUTO 41 % (41-73); Platelet Count 266 K/mm3 (150-400); RDW Standard Deviation 42.8 fL (35.1-46.3); White Blood Cell Count 7.29 K/mm3 (4.00-11.30)
[2020-02-24 01:43] LABS: Alanine Aminotransfer (ALT/SGP 81 U/L (12-78); Albumin, Blood 3.6 g/dL (3.4-5.0); Albumin/Globulin Ratio 0.9 (0.8-1.8); Alk Phos 71 U/L (50-136); Anion Gap 8 mmol/L (6-16); Aspartate Aminotrans (AST/SGOT 83 U/L (12-37); Bilirubin, Total 0.2 mg/dL (0.1-1.0); Blood Urea Nitrogen 18 mg/dL (8-24); Bun/Creatinine Ratio 16.1 (12.0-20.0); CO2, Blood 24 mmol/L (21-32); Calcium, Blood 8.3 mg/dL (8.5-10.1); Chloride, Blood 110 mmol/L (98-108); Creatinine, Blood 1.12 mg/dL (0.60-1.20); Globulin, Blood 3.8 g/dL (2.2-4.0); Glomerular Filtration Rate >60 (60-); Glucose, Blood 127 mg/dL (70-99); Sodium, Blood 142 mmol/L (136-145); Total Protein, Blood 7.4 g/dL (6.4-8.2); Troponin I <0.015 ng/mL (0.000-0.040)
[2020-02-24 01:45] LABS: Ethanol (Alcohol), Blood, Med 346 mg/dL
== END 2020-02-24 03:26 | disposition home or self-care (01) ==
LOC: ER 00:58
PROVIDERS: Emergency Medicine
DX: F10.129 Alcohol abuse with intoxication, unspecified (principal); R56.9 Unspecified convulsions; I10 Essential (primary) hypertension; Z88.0 Allergy status to penicillin; Z88.5 Allergy status to narcotic agent; Z79.899 Other long term (current) drug therapy
CPT/HCPCS: 36415; 71045; 80053; 83690; 83735; 84484; 85025; 93005; 93010; 99284-25; G0480

== ENCOUNTER 2020-03-11 15:40 | Emergency (ER) | payer OTHER ==
[~2020-03-11] VITALS: Ht 180.3 cm; Wt 90.7 kg
[2020-03-11 16:06] LABS: BASOPHILS PERCENT AUTO 1 % (0-2); EOSINOPHILS ABSOLUTE AUTO 0.25 K/mm3 (0.00-0.68); EOSINOPHILS PERCENT AUTO 3 % (0-6); Hematocrit 46.5 % (37.0-53.0); Hemoglobin 15.3 g/dL (13.5-17.5); IMMATURE GRAN ABSOLUTE AUTO 0.04 K/mm3 (0.00-0.10); IMMATURE GRAN PERCENT AUTO 1 % (0-1); LYMPHOCYTES ABSOLUTE AUTO 1.81 K/mm3 (0.84-5.20); LYMPHOCYTES PERCENT AUTO 24 % (21-46); MONOCYTES ABSOLUTE AUTO 0.64 K/mm3 (0.16-1.47); MONOCYTES PERCENT AUTO 8 % (4-13); Mean Corpuscular HGB 30.1 pg (26.0-34.0); Mean Corpuscular HGB Conc 32.9 g/dL (31.5-36.5); Mean Corpuscular Volume 91 fL (80-100); Mean Platelet Volume 10.3 fL (9.1-12.4); NEUTROPHILS ABSOLUTE AUTO 4.74 K/mm3 (1.96-9.15); NEUTROPHILS PERCENT AUTO 63 % (41-73); Platelet Count 255 K/mm3 (150-400); RDW Coefficient Variation 13.1 % (11.7-14.2); RDW Standard Deviation 43.9 fL (35.1-46.3); Red Blood Cell Count 5.09 M/mm3 (4.30-5.90); White Blood Cell Count 7.58 K/mm3 (4.00-11.30)
[2020-03-11 16:27] LABS: Alanine Aminotransfer (ALT/SGP 98 U/L (12-78); Albumin, Blood 3.9 g/dL (3.4-5.0); Albumin/Globulin Ratio 0.7 (0.8-1.8); Alk Phos 76 U/L (50-136); Anion Gap 6 mmol/L (6-16); Aspartate Aminotrans (AST/SGOT 77 U/L (12-37); Bilirubin, Total 0.3 mg/dL (0.1-1.0); Blood Urea Nitrogen 18 mg/dL (8-24); Bun/Creatinine Ratio 19.8 (12.0-20.0); CO2, Blood 27 mmol/L (21-32); Calcium, Blood 9.9 mg/dL (8.5-10.1); Chloride, Blood 105 mmol/L (98-108); Creatinine, Blood 0.91 mg/dL (0.60-1.20); Globulin, Blood 5.7 g/dL (2.2-4.0); Glomerular Filtration Rate >60 (60-); Glucose, Blood 98 mg/dL (70-99); Potassium, Blood 4.5 mmol/L (3.5-5.5); Sodium, Blood 138 mmol/L (136-145); Total Protein, Blood 9.6 g/dL (6.4-8.2)
== END 2020-03-11 18:27 | disposition home or self-care (01) ==
LOC: ER 15:40
PROVIDERS: Emergency Medicine
DX: F10.239 Alcohol dependence with withdrawal, unspecified (principal); R56.9 Unspecified convulsions; I10 Essential (primary) hypertension; F17.210 Nicotine dependence, cigarettes, uncomplicated; Z88.0 Allergy status to penicillin; Z88.5 Allergy status to narcotic agent; Z79.899 Other long term (current) drug therapy
CPT/HCPCS: 36415; 80053; 83690; 85025; 96374; 99285-25; J2560